=== PATIENT | male | born 1955 | race Caucasian/White ===

== ENCOUNTER 2022-11-12 10:51 | Emergency (ER) | payer MEDICARE, SELFPAY ==
[2022-11-12] VITALS (17 sets, daily range): BP systolic 93–156; BP diastolic 52–98; PULSE 93–123; RESP 15–27; TEMP 36.8; O2SAT 91–98
[2022-11-12] MEDS: methylPREDNISolone SOD SUCC 125 MG VIAL (11:06)
[2022-11-12] MEDS: SODIUM CHLORIDE 0.9% IV 1,000 ML 999 ML ×2 (11:06→11:08)
[2022-11-12] MEDS: EPINEPHrine HCL INJ 1 MG/ML AMPUL (11:07)
[2022-11-12] MEDS: diphenhydrAMINE HCl INJ 50 MG/ML VIAL (11:07)
--- NOTE | 2022-11-12 11:44 | ED.ALLEREA ---
HPI - Allergic Reaction General Chief complaint: Allergic Reaction Stated complaint: stung by honeybees Time Seen by Provider: 11/12/22 11:06 History of Present Illness HPI narrative: This is a 67-year-old male, with past history of hypertension and hyperlipidemia, who presents to the emergency department after being stung by multiple bees. The patient states he was working with his known beehive, when the bees became agitated and began stinging him. He states he was stung across the entire body, including the scalp and legs. He states he took Benadryl at home but began feeling lightheaded. He denies difficulty breathing, persistent vomiting or diarrhea. Related Data Allergies Allergy/AdvReac Type Severity Reaction Status Date / Time No Known Allergies Allergy Unverified 11/12/22 11:11 Review of Systems Review of Systems: CONSTITUTIONAL: Denies fever, chills, or sweats. CARDIOVASCULAR: Denies chest pain, palpitations, or edema. RESPIRATORY: Denies cough or dyspnea. GASTROINTESTINAL: Denies abdominal pain, nausea, vomiting, or diarrhea. GENITOURINARY: Denies dysuria or hematuria. SKIN: Denies rash or itching. MUSCULOSKELETAL: Denies back pain, joint pain, or myalgia. NEUROLOGIC: Lightheadedness denies headache, numbness, or weakness. PSYCHIATRIC: Denies anxiety or depression. PMFSH Past Medical History Medical History No significant past medical history Surgical History Surgical History No significant past surgical history Social History Social History Smoking status: Smoker, status unknown Alcohol intake: current Exam Narrative: GENERAL: Well-developed, well-nourished, and in no acute distress. HEAD: Normocephalic, atraumatic. EYES: PERRLA and EOMI. ENT: Nares clear, no rhinorrhea or epistaxis. Mucous membranes moist. Oropharynx without tonsillar hypertrophy exudate or other lesions. NECK: Supple. No adenopathy or masses. No stridor CHEST: Clear to auscultation. No respiratory distress. No wheezes rales or rhonchi HEART: Regular rate and rhythm. No murmur heard. Normal peripheral pulses. ABDOMEN: Soft, nontender, nondistended, normal active bowel sounds. EXTREMITIES: Normal range of motion. No edema. SKIN: Warm, dry. Scattered urticaria noted over the bilateral hips. There are multiple papular lesions noted over the bilateral arms and legs consistent with insect sting. There are no retained insect parts. NEURO: Alert and oriented x3. Moving all 4 limbs purposefully. PSYCH: Normal mood and affect. Course Course Emergency Course: 10:56 - The patient arrives tachycardic and hypotensive to the emergency department. He was brought back quickly to the room and given a 0.3 mg IM epinephrine as well as Solu-Medrol 125 and diphenhydramine 50 mg IV. His exam is not concerning for airway compromise. Will monitor for 4 hours. 15:32 - After evaluation in the emergency department, the patient's blood pressure improved. His rash and lesions overall have improved. He feels comfortable at discharge. Will discharge with steroids, antihistamines and prescription for an epinephrine autoinjector. Discussed return and emergency precautions including signs/symptoms of anaphylaxis and respiratory distress. The patient voiced understanding and is comfortable with the plan. All questions answered to his satisfaction. Vital Signs Vital signs: Vital Signs Temperature 98.2 F 11/12/22 10:59 Pulse Rate 118 H 11/12/22 10:59 Respiratory Rate 16 11/12/22 10:59 Blood Pressure 93/52 L 11/12/22 10:59 Pulse Oximetry 91 11/12/22 10:59 Oxygen Delivery Room Air 11/12/22 10:59 Temperature 98.2 F 11/12/22 10:59 Pulse Rate 94 11/12/22 16:05 Respiratory Rate 20 11/12/22 16:05 Blood Pressure 156/87 H 11/12/22 16:05 Pulse Oximetr
[2022-11-12] MEDS: FAMOTIDINE 20 MG/2 ML VIAL IV PUSH (12:11)
== END 2022-11-12 16:07 | disposition home or self-care (01) ==
PROVIDERS: Emergency Provider Preventive Medicine Aerospace Medicine; PCP Family Medicine
DX: T63.441A Toxic effect of venom of bees, accidental (unintentional), initial encounter (principal); L50.9 Urticaria, unspecified
CPT/HCPCS: 96361; 96372; 96374; 99284; J0171; J1200; J2930; J7030